=== PATIENT | female | born 1975 | race Caucasian/White ===

== ENCOUNTER 2017-07-26 18:19 | Emergency (ER) | payer MEDICAID ==
[2017-07-26] MEDS: SOD CHLORIDE 0.9% 1,000 ML IV (19:10)
[2017-07-26] MEDS: morphine 4 MG/ML VIAL IV (19:10)
[2017-07-26 19:29] LABS: ADD MAN DIFF? NO
[2017-07-26 19:32] LABS: WHITE BLOOD COUNT 3.1 10^3/ul (4.8-10.8)
[2017-07-26 19:32] LABS: EOSINOPHILS % 0.3 % (0.0-7.0); HEMATOCRIT 39.3 % (37.0-47.0); HEMOGLOBIN 12.7 g/dl (12.0-16.0); MEAN CORPUSCULAR HEMOGLOBIN 27.4 pg (29.0-33.0); MEAN CORPUSCULAR HGB CONC 32.3 g/dl (32.0-37.0); MEAN CORPUSCULAR VOLUME 84.9 fl (82.0-101.0); MEAN PLATELET VOLUME 11.4 fl (7.4-10.4); MONOCYTE # 0.3 10^3/ul (0.3-0.9); MONOCYTES % 9.8 % (0.0-11.0); NEUTROPHIL # 1.8 10^3/ul (1.6-7.5); NEUTROPHILS % 57.6 % (39.0-77.0); PLATELET COUNT 135 10^3/UL (140-415); RED BLOOD COUNT 4.63 10^6/ul (4.20-5.40); RED CELL DISTRIBUTION WIDTH 13.9 % (11.5-14.5)
[2017-07-26 19:39] LABS: ADD UMIC NO; UR ASCORBIC ACID 40 mg/dL (NEGATIVE); UR BILIRUBIN (Dip) NEGATIVE (NEGATIVE); UR BLOOD (Dip) NEGATIVE (NEGATIVE); UR CLARITY CLEAR (CLEAR); UR COLOR YELLOW (YELLOW); UR GLUCOSE (Dip) NEGATIVE (NEGATIVE); UR KETONES (Dip) NEGATIVE (NEGATIVE); UR LEUKOCYTE ESTERASE (Dip) NEGATIVE Leu/ul (NEGATIVE); UR NITRITE (Dip) NEGATIVE (NEGATIVE); UR SPECIFIC GRAVITY (Dip) 1.011 (1.003-1.030); UR TOTAL PROTEIN (Dip) NEGATIVE (NEGATIVE); UR UROBILINOGEN (Dip) NEGATIVE (NEGATIVE)
[2017-07-26 19:50] LABS: PROTIME 12.2 Sec (11.9-14.9)
[2017-07-26 19:51] LABS: PARTIAL THROMBOPLASTIN TIME 29.7 Sec (25.0-35.0)
[2017-07-26 19:53] LABS: ALANINE AMINOTRANSFERASE 19 IU/L (13-69); ALBUMIN 3.8 g/dl (3.3-4.9); ALBUMIN/GLOBULIN RATIO 1.18; ALKALINE PHOSPHATASE 55 IU/L (42-121); ANION GAP 16 (8-16); ASPARTATE AMINO TRANSFERASE 18 IU/L (15-46); BILIRUBIN,INDIRECT 0.2 mg/dl (0-1.1); BILIRUBIN,TOTAL 0.2 mg/dl (0.2-1.3); BLOOD UREA NITROGEN 12 mg/dl (7-20); CALCIUM 8.6 mg/dl (8.4-10.2); CARBON DIOXIDE 28 mmol/L (21-31); CHLORIDE 103 mmol/L (97-110); GLUCOSE 96 mg/dl (70-220); LIPASE 53 U/L (23-300); POTASSIUM 3.8 mmol/L (3.5-5.1); SODIUM 143 mmol/L (135-144)
== END 2017-07-26 20:29 | disposition home or self-care (01) ==
LOC: FTE 18:19
DX: K80.20 Calculus of gallbladder without cholecystitis without obstruction (principal)
CPT/HCPCS: 36415; 76705; 80053; 81003; 83690; 85025; 85610; 85730; 96374; 99285-25

== ENCOUNTER 2017-11-23 03:17 | Emergency (ER) | payer MEDICAID | END 2017-11-23 04:16 | disposition home or self-care (01) | LOC: FTE 03:17 | DX: J02.9 Acute pharyngitis, unspecified (principal) | CPT/HCPCS: 99283; Z7502 ==

== ENCOUNTER 2018-03-30 20:29 | Emergency (ER) | payer MEDICAID ==
[2018-03-30] MEDS: LORAZEPAM 0.5 MG TAB PO (21:49)
== END 2018-03-30 21:49 | disposition home or self-care (01) ==
LOC: E/R 20:29
DX: R00.2 Palpitations (principal); R00.0 Tachycardia, unspecified; F41.9 Anxiety disorder, unspecified; Z63.4 Disappearance and death of family member
CPT/HCPCS: 93005; 99283-25

== ENCOUNTER 2018-09-16 16:20 | Emergency (ER) | payer MEDICAID | END 2018-09-16 19:48 | disposition home or self-care (01) | LOC: FTE 19:48 | DX: N61.0 Mastitis without abscess (principal) | CPT/HCPCS: 99283; Z7502 ==

== ENCOUNTER 2018-12-22 08:36 | Emergency (ER) | payer MEDICAID ==
[2018-12-22] MEDS ORDERED: KETOROLAC 30 MG INJ IM (09:51)
[2018-12-22] MEDS: ACETAMINOPHEN 500 MG TAB PO (10:27)
== END 2018-12-22 12:14 | disposition home or self-care (01) ==
LOC: FTE 08:36
DX: O99.89 Other specified diseases and conditions complicating pregnancy, childbirth and the puerperium (principal); M54.5 Low back pain; Z3A.01 Less than 8 weeks gestation of pregnancy
CPT/HCPCS: 81003; 81025; 84702; 99283